=== PATIENT | female | born 1990 | race African-American/Black ===

== ENCOUNTER 2018-07-23 03:46 | Emergency (ER) | END 2018-07-23 05:25 | disposition home or self-care (01) ==

== ENCOUNTER 2018-08-30 02:33 | Emergency (ER) | END 2018-08-30 05:13 | disposition home or self-care (01) ==

== ENCOUNTER 2019-07-14 18:40 | Emergency (ER) | payer OTHER ==
[~2019-07-14] VITALS: Ht 165.1 cm; Wt 80.2 kg
[~2019-07-14 18:40] MED LIST: CEPH-443 PO; FAMO-96 PO; HYDR-4011 PO; IBUP-1542 PO; MEDR10TA2 PO; NITR-58 PO
[2019-07-14 18:44] VITALS: BP 127/75; PULSE 80; RESP 22; Ht 165.1 cm; Wt 80.2 kg
[2019-07-14] MEDS ORDERED: HYDROCODONE/APAP (5/325) TAB PO STA (19:58)
[2019-07-14] MEDS ORDERED: KETOROLAC 30 MG INJ IM STA (19:58)
== END 2019-07-14 22:04 | disposition home or self-care (01) ==
LOC: FTE 18:40
DX: N92.0 Excessive and frequent menstruation with regular cycle (principal); N94.6 Dysmenorrhea, unspecified; Z91.010 Allergy to peanuts
CPT/HCPCS: 36415; 76856; 81025; 85025; 96372; J1885; Z7502; Z7610